=== PATIENT | male | born 1975 | race Asian ===

== ENCOUNTER 2017-12-17 16:50 | Emergency (ER) | payer OTHER ==
[2017-12-17] MEDS ORDERED: Lidocaine 1% 50 ML MDV INJECT ONE (17:16)
--- NOTE | 2017-12-17 19:35 | EDM.PDOC ---
ED HPI GENERAL MEDICAL PROBLEM - General Chief Complaint: Upper Extremity Injury/Pain Stated Complaint: R MIDDLE FINGER LACERATION Time Seen by Provider: 12/17/17 17:05 Source of Information: Reports: Patient History Limitations: Reports: No Limitations - History of Present Illness INITIAL COMMENTS - FREE TEXT/NARRATIVE: 42-year-old male presents for evaluation and treatment of the laceration to the right hand middle finger. Injury occurred prior to arrival in the ER. 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 Reports he is working with a thermometer when it broke. He does not have any chemical rayo. No exposure to any mercury. He has a laceration to the right hand, third finger along the radial aspect as well as to the ventral DIP joint. He reports bleeding associated the wound. Reports numbness and tingling to the finger. No decreased range of motion. Tetanus is up-to-date. Patient is right-handed. Onset: Today Location: Reports: Upper Extremity, Right Right Hand Pain Score (Numeric/FACES): 3 - Related Data Allergies Allergy/AdvReac Type Severity Reaction Status Date / Time No Known Allergies Allergy Verified 12/17/17 17:00 Home Meds: Home Meds . [No Known Home Meds] 12/17/17 [History] Past Medical History Respiratory History: Reports: Asthma Social & Family History - Tobacco Use Smoking Status *Q: Never Smoker Review of Systems - Review of Systems Review Of Systems: See Below Musculoskeletal: Reports: Hand Pain (right hand 3rd finger), Other (no decreased ROM to the right hand 3rd finger) Skin: Reports: Wound (right hand 3rd finger) Neurological: Reports: Numbness, Tingling ED EXAM, GENERAL - Physical Exam Exam: See Below Exam Limited By: No Limitations General Appearance: Alert, WD/WN, No Apparent Distress Respiratory/Chest: No Respiratory Distress Cardiovascular: Normal Peripheral Pulses Peripheral Pulses: 2+: Radial (R) Extremities: Normal Range of Motion (able to flex and extend finger with and without resistance, able to adduct and abduct fingers, able to make a fist), Normal Capillary Refill Neurological: Alert, Oriented, Normal Cognition Psychiatric: Normal Affect, Normal Mood Skin Exam: Warm, Dry, Other (2.5 cm subcutaneous laceration to the right hand middle finger ulnar aspect; appears to have gone through as he also has a 0.3cm wound to the right ventral hand over the DIP jouit) ED TRAUMA EXTREMITY PROCEDURES - Laceration/Wound Repair Right Finger Lac/Wound Length In cm: 2.5 Appearance: Subcutaneous, Irregular, Clean Distal NVT: Neuro & Vascular Intact, No Tendon Injury Anesthetic Type: Local Local Anesthesia - Lidocaine (Xylocaine): 1% Plain Local Anesthetic Volume: 2cc Skin Prep: Chlorhexidine (Hibiciens), Saline, Sterile Drape Exploration/Debridement/Repair: Wound Explored, No Foreign Material Found Closed With: Sutures Suture Size: other # of Sutures: 5 Suture Type: Nylon, Interrupted, Simple Sterile Dressing Applied: Nurse Tetanus Status Addressed: Yes Complications: No Course - Vital Signs Last Recorded V/S: Last Vital Signs Temp 36.7 C 12/17/17 17:00 Pulse 78 12/17/17 17:00 Resp 17 12/17/17 17:00 BP 178/100 H 12/17/17 17:00 Pulse Ox 98 12/17/17 17:00 - Orders/Labs/Meds Meds: Medications Discontinued Medications Generic Name Dose Route Start Last Admin Trade Name Eliud PRN Reason Stop Dose Admin Lidocaine HCl 50 ml 12/17/17 17:16 12/17/17 19:57 Xylocaine 1% INJECT 12/17/17 17:17 50 ml ONETIME ONE Administration - Re-Assessments/Exams Free Text/Narrative Re-Assessment/Exam: 12/18/17 19:30 7 sutures placed to the right middle finger. 6 sutures were placed to the 2.5 cm laceration. One suture was placed the 0.3 cm laceration. Patient tolerated this well. There were no complications. Reports tetanus is up-to-date. Discharge instructions as documented. Departure - Departure Time of Disposition: 19:33 Disposition: Home, Self-Care 01 Condition: Fair Clinical Impression: Laceration - Discharge Information Instructions: Laceration Care, Adult, [id number] Referrals: PCP,None [Primary Care Provider] - Forms: ED Department Discharge Additional Instructions: Wash the wound with gentle soap and water twice a day. Apply antibacterial ointment such as Neosporin or bacitracin to the wound twice a day. Keep the wound covered. Monitor for signs of infection such as increased swelling, pus or redness. Present to the clinic or the ER should these develop. Have the sutures removed in 10 days. the [facility] clinic located on the [facility] is open Saturday through Saturday 8 AM to 5 PM and will remove the sutures for free. Call [phone] to schedule the provider there. Please return to the ER if your symptoms change or worsen.
== END 2017-12-17 19:56 | disposition home or self-care (01) ==
LOC: JD.ED 16:50
DX: S61.213A Laceration without foreign body of left middle finger without damage to nail, initial encounter (principal); W25.XXXA Contact with sharp glass, initial encounter
CPT/HCPCS: 12001; 99282-25; 99283-25